=== PATIENT | female | born 1955 | race Caucasian/White ===

== ENCOUNTER 2019-05-25 06:18 | Emergency (ER) | payer OTHER ==
[~2019-05-25] VITALS: Ht 160 cm; Wt 103.9 kg
[~2019-05-25 06:18] MED LIST: LEVO25TA4 PO
[2019-05-25 06:47] LABS: MICROSCOPIC AUTO
[2019-05-25 06:48] LABS: CULTURE INDICATED? NO
[2019-05-25] MEDS ORDERED: FAMOTIDINE 20 MG/2 ML IV ONE (07:00)
[2019-05-25] MEDS ORDERED: MAALOX/HYOSCYAMINE/LIDOCAINE 45 ML BTL PO ONE (07:00)
[2019-05-25] MEDS ORDERED: MAALOX/HYOSCYAMINE/LIDOCAINE 45 ML BTL ONE (07:14)
--- NOTE | 2019-05-25 07:18 | NUR ---
DISCUSSED WITH , OK TO HOLD OFF ON IV AND PEPSID AT THIS TIME, WILL ADMIN GI COCKTAIL PER AT THIS TIME, ABD US BEING COMPLETED AT BEDSIDE NOW
[2019-05-25 07:45] LABS: BASOPHILS # (AUTO) 0.06 x10^3/uL (0-0.1); BASOPHILS % (AUTO) 1 % (0-1); EOSINOPHILS # (AUTO) 0.12 x10^3/uL (0-0.4); EOSINOPHILS % (AUTO) 1 % (1-7); LYMPHOCYTES # (AUTO) 2.11 x10^3/uL (1-3.4); LYMPHOCYTES % (AUTO) 21 % (22-44); MD NO; MEAN CORPUSCULAR HEMOGLOBIN 28.2 pg (27.0-34.8); MEAN CORPUSCULAR HGB CONC 32.9 g/dL (32.4-35.8); MEAN CORPUSCULAR VOLUME 85.5 fL (80-100); MEAN PLATELET VOLUME 8.2 fL (7.4-10.4); MONOCYTES # (AUTO) 0.58 x10^3/uL (0.2-0.8); MONOCYTES % (AUTO) 6 % (2-9); NEUTROPHILS # (AUTO) 7.07 x10^3/uL (1.8-6.8); NEUTROPHILS % (AUTO) 71 % (42-75); PLATELET COUNT 254 x10^3/uL (130-400); RED BLOOD COUNT 5.12 x10^6/uL (3.82-5.3); RED CELL DISTRIBUTION WIDTH 15.2 % (9.6-15.2)
[2019-05-25 07:58] LABS: ALANINE AMINOTRANSFERASE 29 U/L (12-78); ALBUMIN 3.5 g/dL (3.4-5.0); ANION GAP 6 mmol/L (5-15); CALCIUM 8.9 mg/dL (8.5-10.1); CHLORIDE 110 mmol/L (98-107); CREATININE 0.85 mg/dL (0.55-1.02)
[2019-05-25 08:00] LABS: ALKALINE PHOSPHATASE 98 U/L (45-117); BILIRUBIN,TOTAL 0.3 mg/dL (0.2-1.0); TOTAL PROTEIN 7.2 g/dL (6.4-8.2)
[2019-05-25] MEDS ORDERED: HYDROcodone/APAP 5/325 TABLET PO ONE (08:00)
[2019-05-25] MEDS ORDERED: HYDROcodone/APAP 5/325 TABLET ONE (08:17)
[2019-05-25] MEDS ORDERED: ONDANSETRON ODT 4 MG ONE (08:40)
[2019-05-25] MEDS ORDERED: HYDROmorphone 2 MG/ML, 1ML ONE (08:42)
[2019-05-25] MEDS ORDERED: ONDANSETRON ODT 4 MG PO ONE (09:00)
[2019-05-25] MEDS ORDERED: HYDROmorphone 1 MG/ML, 1ML INJ IM ONE (09:00)
--- NOTE | 2019-05-25 09:16 | NUR ---
PT MEDICATED WITH ADDITIONAL PAIN MEDICATION PER ERMD ORDER, PT NOW STATES ADEQUATE PAIN RELEIF AT THIS TIME
--- NOTE | 2019-05-25 10:00 | NUR ---
PT DESATING WHILE SLEEPING S/P PAIN MED ADMINISTRATION, PT PLACED ON SUPP O2 2L, ERMD MADE AWARE, WILL REASSESS
[2019-05-25 10:55] VITALS: BP 151/66
--- NOTE | 2019-05-25 10:58 | NUR ---
PT NOW SATING RA 92-95%. PT WITH WITH RIDE HOME. VERIFIED ALL BELONGINGS ON DC
== END 2019-05-25 11:22 | disposition home or self-care (01) ==
LOC: ED 06:39
DX: K80.20 Calculus of gallbladder without cholecystitis without obstruction (principal); R10.13 Epigastric pain; E03.9 Hypothyroidism, unspecified
CPT/HCPCS: 36415; 76700; 80053; 81001; 83690; 85025; 96372; 99284; J1170; Q0162

== ENCOUNTER → 2019-12-10 | Outpatient (CLI) | payer OTHER, MEDICAID ==
[~2019-12-10] MED LIST changes: +LEVO50TA64 PO; +PANT20TA2 PO
== END | disposition home or self-care (01) ==
LOC: STAR 11:06
PROVIDERS: ATTEND Surgery
DX: Z01.812 Encounter for preprocedural laboratory examination (principal); Z20.828 Contact with and (suspected) exposure to other viral communicable diseases; K80.10 Calculus of gallbladder with chronic cholecystitis without obstruction
CPT/HCPCS: 36415; 87635; 93005

== ENCOUNTER 2019-12-14 05:41 | Day surgery (SDC) | payer OTHER, MEDICAID ==
[~2019-12-14] VITALS: Ht 160 cm; Wt 99.6 kg
[2019-12-14 06:17] VITALS: BP 138/82
[2019-12-14] MEDS ORDERED: LIDOCAINE-MPF 1%, 2ML INFIL ONE (06:30)
[2019-12-14] MEDS ORDERED: CHLORHEXIDINE 15 ML UDC MM ONE (06:30)
[2019-12-14] MEDS ORDERED: LACTATED RINGERS 1,000 ML IV SCH (06:30)
[2019-12-14] MEDS ORDERED: FENTANYL PF 250 MCG/5ML ONE (07:14)
[2019-12-14] MEDS ORDERED: EPINEPHRINE 1 MG/ML, 1ML INFIL ONE (07:53)
[2019-12-14] MEDS ORDERED: BUPIVACAINE/PF 0.5% INFIL ONE (07:53)
[2019-12-14] MEDS ORDERED: HALOPERIDOL 5 MG/ML IV PRN (09:00)
[2019-12-14] MEDS ORDERED: LORazepam 2 MG/ML, 1ML IVPush PRN (09:00)
[2019-12-14] MEDS ORDERED: LABETALOL 5MG/ML, 20ML IV PRN (09:00)
[2019-12-14] MEDS ORDERED: OXYcodone 5 MG/5 ML ORAL.SOL UDC PO PRN (09:00)
[2019-12-14] MEDS ORDERED: ACETAMINOPHEN 325 MG TABLET PO PRN (09:00)
[2019-12-14] MEDS ORDERED: EPHEDRINE 50 MG/ML, 1ML IVPush PRN (09:00)
[2019-12-14] MEDS ORDERED: HYDROmorphone 1 MG/ML, 1ML INJ IVPush PRN (09:00)
[2019-12-14] MEDS ORDERED: PROMETHAZINE 25 MG/ML, 1ML IVPush PRN (09:00)
[2019-12-14] MEDS ORDERED: hydrALAzine 20 MG/ML, 1ML IV PRN (09:00)
[2019-12-14] MEDS ORDERED: FENTANYL PF 100 MCG/2ML IV PRN (09:00)
[2019-12-14] MEDS ORDERED: MEPERIDINE/PF 25MG/0.5ML IVPush PRN (09:00)
[2019-12-14] MEDS ORDERED: METHOCARBAMOL 1,000 MG in DEXTROSE 5% 100 ML IV PRN (09:00)
[2019-12-14] MEDS ORDERED: CEFAZOLIN 1,000 MG ONE (15:21)
[2019-12-14] MEDS ORDERED: ONDANSETRON 2MG/ML, 2ML ONE (15:21)
[2019-12-14] MEDS ORDERED: GLYCOPYRROLATE 0.2MG/1ML, 5ML ONE (15:21)
[2019-12-14] MEDS ORDERED: PROPOFOL 10 MG/ML, 20ML ONE (15:21)
[2019-12-14] MEDS ORDERED: ROCURONIUM 10MG/ML,5ML ONE (15:21)
[2019-12-14] MEDS ORDERED: SUCCINYLCHOLINE 20 MG/ML, 10ML ONE (15:21)
[2019-12-14] MEDS ORDERED: KETOROLAC 30 MG/1 ML ONE (15:21)
[2019-12-14] MEDS ORDERED: NEOSTIGMINE 1 MG/ML, 10ML ONE (15:21)
[2019-12-14] MEDS ORDERED: DEXAMETHASONE 4 MG/ML, 1ML ONE (15:21)
== END 2019-12-14 10:15 | disposition home or self-care (01) ==
LOC: OUT 05:41
PROVIDERS: ATTEND Surgery
DX: K80.10 Calculus of gallbladder with chronic cholecystitis without obstruction (principal); K66.0 Peritoneal adhesions (postprocedural) (postinfection); K21.9 Gastro-esophageal reflux disease without esophagitis; Z79.899 Other long term (current) drug therapy; Z82.49 Family history of ischemic heart disease and other diseases of the circulatory system
CPT/HCPCS: 47562; 88304; J0171; J0330; J0690; J1100; J1885; J2405; J2704; J2710; J3010; J7120